=== PATIENT | female | born 1990 | race Caucasian/White ===

== ENCOUNTER 2020-05-05 10:29 | Outpatient (CLI) | payer OTHER ==
[~2020-05-05] VITALS: Ht 157.5 cm; Wt 86.8 kg
[2020-05-05 10:38] VITALS: BP 112/61
[2020-05-05] MEDS ORDERED: PREN1TAB62 PO (10:45)
== END 2020-05-05 11:45 | disposition home or self-care (01) ==
LOC: LDOP 10:29
PROVIDERS: ATTEND Obstetrics & Gynecology
DX: O34.63 Maternal care for abnormality of vagina, third trimester (principal); Z3A.40 40 weeks gestation of pregnancy
CPT/HCPCS: 84112

== ENCOUNTER 2020-05-06 02:43 | Inpatient (IN) | payer OTHER ==
[~2020-05-06] VITALS: Ht 157.5 cm; Wt 86.8 kg
[~2020-05-06 02:43] MED LIST: PREN1TAB62 PO
[2020-05-06] MEDS ORDERED: FENTANYL PF 100 MCG/2ML ONE (04:12)
[2020-05-06] MEDS: LACTATED RINGERS 1,000 ML IV SCH ×4 (04:15→14:00)
[2020-05-06] MEDS ORDERED: OXYTOCIN 30U/ 0.9% NaCL 500ML 500 ML IV PRN (04:30)
[2020-05-06] MEDS ORDERED: TERBUTALINE 1 MG/ML, 1ML IVPush PRN (04:30)
[2020-05-06] MEDS ORDERED: ONDANSETRON 2MG/ML, 2ML IVPush PRN (04:30)
[2020-05-06] MEDS ORDERED: NEWBORN KIT ONE ×2 (04:30→08:43)
[2020-05-06] MEDS ORDERED: OXYTOCIN 30U/ 0.9% NaCL 500ML 500 ML IV ONE (04:30)
[2020-05-06] MEDS ORDERED: TERBUTALINE 1 MG/ML, 1ML SQ PRN (04:30)
[2020-05-06] MEDS ORDERED: FENTANYL PF 100 MCG/2ML IV PRN (04:30)
[2020-05-06] MEDS: FENTANYL PF 100 MCG/2ML IVPush PRN ×2 (04:35→15:55)
[2020-05-06 05:13] LABS: BASOPHILS % (AUTO) 0 % (0-1); EOSINOPHILS % (AUTO) 0 % (1-7); LYMPHOCYTES % (AUTO) 22 % (22-44); MEAN CORPUSCULAR HEMOGLOBIN 27.3 pg (27.0-34.8); MEAN CORPUSCULAR HGB CONC 32.7 g/dL (32.4-35.8); MEAN PLATELET VOLUME 10.4 fL (7.4-10.4); MONOCYTES % (AUTO) 5 % (2-9); NEUTROPHILS % (AUTO) 72 % (42-75); PLATELET COUNT 193 x10^3/uL (130-400); RED BLOOD COUNT 4.13 x10^6/uL (3.82-5.3); RED CELL DISTRIBUTION WIDTH 13.8 % (9.6-15.2)
[2020-05-06 05:14] LABS: MD NO
[2020-05-06] MEDS ORDERED: BUPIVACAINE 0.25% ONE (05:22)
[2020-05-06] MEDS ORDERED: FENTANYL/BUPIV./NS/PF 250 ML EPIDCONT ONE (05:22)
[2020-05-06] MEDS ORDERED: EPHEDRINE 50 MG/ML, 1ML IVPush PRN (06:00)
[2020-05-06] MEDS ORDERED: FENTANYL/BUPIV./NS/PF 250 ML EPIDCONT SCH (06:00)
[2020-05-06] MEDS ORDERED: LACTATED RINGERS 1,000 ML IVBOLUS PRN (06:00)
[2020-05-06] MEDS ORDERED: IBUPROFEN 600 MG TABLET ONE (13:23)
[2020-05-06 15:40] VITALS: BP 98/62
[2020-05-06] MEDS ORDERED: ACETAMINOPHEN 325 MG TABLET PO PRN ×2 (16:30)
[2020-05-06] MEDS ORDERED: OXYcodone/APAP 5/325MG TABLET PO PRN ×2 (16:30)
[2020-05-06] MEDS ORDERED: MISOPROSTOL 200 MCG TABLET PR PRN (16:30)
[2020-05-06] MEDS ORDERED: SIMETHICONE 80 MG CHEW TAB PO PRN (16:30)
[2020-05-06] MEDS ORDERED: HYDROcodone/APAP 5/325 TABLET PO PRN ×2 (16:30)
[2020-05-06] MEDS ORDERED: DIPH,PERTUSS(ACELL),TET VAC/PF NC IM-VACC PRN (16:30)
[2020-05-06] MEDS ORDERED: DOCUSATE 100 MG CAPSULE PO PRN (16:30)
[2020-05-06] MEDS: OXYTOCIN 30U/ 0.9% NaCL 500ML 500 ML IV SCH (16:30)
[2020-05-06 20:00] VITALS: BP 116/72
[2020-05-06 20:48] LABS: BASOPHILS % (AUTO) 1 % (0-1); EOSINOPHILS % (AUTO) 0 % (1-7); LYMPHOCYTES % (AUTO) 13 % (22-44); MEAN CORPUSCULAR HEMOGLOBIN 27.3 pg (27.0-34.8); MEAN PLATELET VOLUME 10.3 fL (7.4-10.4); MONOCYTES % (AUTO) 6 % (2-9); NEUTROPHILS % (AUTO) 81 % (42-75); PLATELET COUNT 158 x10^3/uL (130-400); RED BLOOD COUNT 3.99 x10^6/uL (3.82-5.3); RED CELL DISTRIBUTION WIDTH 14.1 % (9.6-15.2)
[2020-05-06 20:50] LABS: MD NO
[2020-05-07] MEDS: IBUPROFEN 600 MG TABLET PO PRN ×2 (00:26→08:31)
[2020-05-07 00:29] VITALS: BP 101/65
[2020-05-07] MEDS: OXYTOCIN 30U/ 0.9% NaCL 500ML 500 ML IV SCH ×2 (00:44→11:00)
[2020-05-07 05:07] VITALS: BP 111/73
[2020-05-07 07:00] VITALS: BP 116/72
[2020-05-07] MEDS ORDERED: PRENATAL VIT/IRON/FA 1 EACH TABLET PO SCH (09:00)
[2020-05-07] MEDS ORDERED: IBUP-1222 PO (13:02)
== END 2020-05-07 13:52 | disposition home or self-care (01) | DRG 807 ==
LOC: LDOP 02:43 → LDIP 04:08 → 2NW 15:31
PROVIDERS: ADMIT Obstetrics & Gynecology; ATTEND Obstetrics & Gynecology
PROC: 10E0XZZ Delivery of Products of Conception, External Approach (ICD-10-PCS; principal; 2020-05-06)
PROC: 3E0R3BZ Introduction of Anesthetic Agent into Spinal Canal, Percutaneous Approach (ICD-10-PCS; 2020-05-06)
PROC: 00HU33Z Insertion of Infusion Device into Spinal Canal, Percutaneous Approach (ICD-10-PCS; 2020-05-06)
PROC: 0UQMXZZ Repair Vulva, External Approach (ICD-10-PCS; 2020-05-06)
DX: O76 Abnormality in fetal heart rate and rhythm complicating labor and delivery (principal); Z37.0 Single live birth; Z20.822 Contact with and (suspected) exposure to COVID-19; O70.0 First degree perineal laceration during delivery; Z3A.39 39 weeks gestation of pregnancy
CPT/HCPCS: 36415; 85025; 86592; 86850; 86900; 87635; 88307; 90715; G0378; J3010; J7120